=== PATIENT | male | born 1955 | race Caucasian/White ===

== ENCOUNTER 2018-04-13 18:59 | Emergency (ER) | payer OTHER ==
[~2018-04-13] VITALS: Ht 177.8 cm; Wt 73.5 kg
[2018-04-13 21:04] VITALS: BP 154/87
== END 2018-04-13 21:04 | disposition home or self-care (01) ==
LOC: ED 18:59
DX: T15.01XA Foreign body in cornea, right eye, initial encounter (principal); X58.XXXA Exposure to other specified factors, initial encounter; Y93.89 Activity, other specified; Y92.89 Other specified places as the place of occurrence of the external cause; Y99.8 Other external cause status

== ENCOUNTER 2019-03-30 22:16 | Inpatient (IN) | payer OTHER ==
[~2019-03-30] VITALS: Ht 177.8 cm; Wt 72.7 kg
--- NOTE | 2019-03-30 22:30 | NUR ---
PT AAOX4, NO S/S OF DISTRESS NOTED, RESPIRATIONS EVEN AND UNLABORED. PT REPORTS NON RADIATING CHEST PAIN, TO EPIGASTRIC AREA, RATED 5/10. PT REPORTS SITTING DOWN WHEN PAIN STARTED. PT REPORTS PAIN STARTED 1 HOUR PRIOR TO ARRIVAL. PT REPORTS PAIN FEELS LIKE PRESSURE. PT ATTACHED TO HR ADMINISTRATOR. PT REPORTS DURING ASSESSMENT THAT PAIN IS BEGINNING TO DECREASE TO A 2/10. PT STATES "I THINK IT WAS MORE STRESS THAN ANYTHING." PT DENIES ANXIETY.
--- NOTE | 2019-03-30 22:45 | NUR ---
XRAY IN PROG[facility] AT BEDSIDE.
[2019-03-30 22:59] LABS: BASOPHIL % 0.6 % (0-2); PLATELET COUNT 174 x10^3mcL (130-400); RED CELL DISTRIBUTION WIDTH 13.8 % (11.5-14.5)
[2019-03-30 23:14] LABS: CALCIUM 9.2 mg/dL (8.5-10.1); CARBON DIOXIDE 29.3 mmol/L (21-32); CHLORIDE SERUM 106 mmol/L (98-107); CREATININE SERUM 0.9 mg/dL (0.7-1.3); GFR1 > 60 mL/min; GLUCOSE SERUM 113 mg/dL (74-106); SODIUM SERUM 143 mmol/L (136-145)
[2019-03-30 23:21] LABS: ALBUMIN 3.5 g/dL (3.4-5.0); ALKALINE PHOSPHATASE 60 U/L (46-116); ALT/SGPT 33 U/L (16-63); AST/SGOT 24 U/L (15-37); BILIRUBIN TOTAL 0.3 mg/dL (0.20-1.00); TOTAL PROTEIN, SERUM 6.2 g/dL (6.4-8.2)
--- NOTE | 2019-03-30 23:35 | NUR ---
DR ROBERTS AT BEDSIDE DISCUSSING PLAN OF CARE WITH PT.
--- NOTE | 2019-03-31 00:37 | NUR ---
PT SITTING IN SEMI-OCASIO'S IN [place] WITH EYES CLOSED, EASILY AROUSABLE TO VOICE, RESP E/U, DENIES ANY PAIN. NAD NOTED.
--- NOTE | 2019-03-31 01:32 | NUR ---
PT LAYING IN BED SLEEPING, PT EASILY AROUSABLE. PT PROVIDED WITH BLANKETS AND WENT BACK TO SLEEP, NO S/S OF DISTRESS ARE NOTED AT THIS TIME.
--- NOTE | 2019-03-31 02:28 | NUR ---
REPORT GIVEN TO AIDA BOLTON TO ASSUME CARE OF PT.
[2019-03-31 03:18] VITALS: BP 129/72
--- NOTE | 2019-03-31 03:42 | NUR ---
RECIEVED PT FROM ER IN NO ACUTE DISTRESS. ADMIT FOR CP. DENIES CP AT THIS TIME. TELE #[id number], SR WITH ELEVATED T WAVE. AOX4. BREATHING E/U. SL TO LAC, PATENT. RECEIVED TELEPHONE ORDERS FROM DR. WANG. ORIENTED TO ROOM. BED IN LOWEST POSITION, 2 SIDE RAILS UP, CALL LIGHT IN REACH. INSTRUCTED TO CALL FOR ASSISTANCE.
[2019-03-31 05:32] VITALS: BP 113/65
--- NOTE | 2019-03-31 07:20 | NUR ---
RECEIVED PT FROM SHIFT NURSE ASLEEP BUT AROUSABLE. NO ACUTE DISTRESS NOTED. HEPLOCK PATENT. CALL LIGHT WITHIN REACH. WILL CONTINUE TO MONITOR.
[2019-03-31 07:28] VITALS: BP 130/76
--- NOTE | 2019-03-31 09:41 | NUR ---
PT SITTING UP IN BED WATCHING TV. DENIES CHEST PAIN OR PRESSURE. CALL LIGHT WITHIN REACH. WILL CONTINUE TO MONITOR.
--- NOTE | 2019-03-31 11:15 | NUR ---
PT ASLEEP BUT AROUSABLE. NO ACUTE DISTRESS NOTED. CALL LIGHT WITHIN REACH. WILL CONTINUE TO MONITOR.
--- NOTE | 2019-03-31 12:25 | NUR ---
PT AMBULATING AROUND HALLWAY
[2019-03-31 13:16] VITALS: BP 116/79
[2019-03-31 14:12] VITALS: BP 116/79
--- NOTE | 2019-03-31 15:11 | NUR ---
PT A/OX4 UPON DC. DENIES CHEST PAIN OR PRESSURE. IV REMOVED AND CATH INTACT. EDUCATION PROVIDED. FOLLOW UP APT GIVE. PT VERBALIZED UNDERSTANDING. PERSONAL BELONGINGS TAKEN HOME. ACCOMPANIED BY FIELD CLERK TO LOBBY.
--- NOTE | 2019-04-01 07:29 | NUR ---
ECHOCARDIOGRAM NOT DONE-DISCHARGED
== END 2019-03-31 15:10 | disposition home or self-care (01) | DRG 313 ==
LOC: ED 22:16 → DU 03-31 02:12
PROVIDERS: Emergency Medicine; ADMIT Internal Medicine Pulmonary Disease
DX: R07.89 Other chest pain (principal); E78.5 Hyperlipidemia, unspecified; Z82.49 Family history of ischemic heart disease and other diseases of the circulatory system
CPT/HCPCS: G0378; Q0092